=== PATIENT | female | born 1955 | race Caucasian/White ===

== ENCOUNTER 2018-08-30 09:06 | Outpatient (CLI) | payer BC ==
--- NOTE | 2018-08-30 11:03 | RAD ---
LEFT WRIST 2 VIEWS: History Wrist pain. COMPARISON: None. FINDINGS: There is evidence of a subacute chronic injury of the distal ulnar styloid with nonunion. There is c alcification in triangular fibrocartilage. No acute fracture or malalignment. IMPRESSION: 1. Nonunion ulnar styloid injury. 2. Ossification of the triangular fibrocartilage. 3. 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 POS: [facility]
== END 2018-08-30 09:07 | disposition home or self-care (01) ==
LOC: BICRAD 09:06
PROVIDERS: ATTEND Family Medicine
DX: M25.532 Pain in left wrist (principal); S69.92XA Unspecified injury of left wrist, hand and finger(s), initial encounter; M94.8X2 Other specified disorders of cartilage, upper arm

== ENCOUNTER 2018-12-27 22:55 | Inpatient (IN) | payer BC ==
[2018-12-27] MEDS ORDERED: Lidocaine Viscous Sol 2% 15 ml UD Cup ONE (23:39)
[2018-12-27] MEDS ORDERED: Aspirin Chewable 81 MG TAB ONE (23:39)
[2018-12-27] MEDS ORDERED: Mag-Al Plus 1200 MG/1200 MG/120 MG/30 ML UDCUP ONE (23:39)
[2018-12-28 00:05] LABS: #Basophils 0.1 thou/uL (0.0-0.2); #Eosinphils 0.1 thou/uL (0.0-0.7); #Lymphocytes 1.2 thou/uL (1.20-3.40); #Monocytes 0.8 thou/uL (0.11-0.59); #Neutrophils 7.2 thou/uL (1.40-6.50); %Basophils 1.1 % (0.0-1.0); %Eosinophils 1.6 % (0.0-10.0); %Lymphocytes 12.2 % (21.0-51.0); %Monocytes 8.7 % (0.0-10.0); %Neutrophils 76.5 % (42.0-75.0); Hemoglobin 14.3 g/dL (12.0-16.0); Mean Corpuscular Volume 91.1 fL (78.0-98.0); Platelet Count 203 thou/uL (130-400); RBC Distribution Width 11.3 % (11.5-14.5); Red Blood Cell (RBC) Count 4.63 mill/uL (4.20-5.40); White Blood Cell (WBC) Count 9.5 thou/uL (4.8-10.8)
--- NOTE | 2018-12-28 00:07 | RAD ---
PORTABLE CHEST: HISTORY: Chest pain. COMPARISON: 11/11/2016 FINDINGS: Heart size is within normal limits for the portable technique. The aorta is tortuous. The lungs are clear of infiltrates. Arthritic changes of both shoulders are seen with postoperative changes of th e left shoulder. IMPRESSION: No active intrathoracic disease. POS: [facility]
[2018-12-28 00:17] LABS: ALT (SGPT) 667 U/L (8-55); AST (SGOT) 643 U/L (5-34); Albumin 4.4 g/dL (3.4-4.8); Alkaline Phosphatase 320 U/L (40-150); Anion Gap 16 mmol/L (10-20); BUN (Urea Nitrogen) 11 mg/dL (9.8-20.1); Bilirubin, Total 1.8 mg/dL (0.2-1.2); CK (CPK) 67 U/L (29-168); Calc. Creatinine Clearance 0 mL/min (70-130); Calcium 9.7 mg/dL (7.8-10.44); Carbon Dioxide 26 mmol/L (23-31); Chloride 103 mmol/L (98-107); Estimated GFR-MDRD 89; Globulin 3.3 g/dL (2.4-3.5); Glucose 119 mg/dL (80-115); Potassium 3.7 mmol/L (3.5-5.1); Protein, Total 7.7 g/dL (6.0-8.3); Sodium 141 mmol/L (136-145)
[2018-12-28 00:33] LABS: Lipase 8746 U/L (8-78)
[2018-12-28] MEDS ORDERED: Ketorolac Tromethamine 30 MG/ML VIAL ONE (00:38)
[2018-12-28] MEDS ORDERED: Piperacillin/Tazobactam 3.375 GM VIAL ONE (01:46)
[2018-12-28] MEDS ORDERED: Sodium Chloride 0.9% 100 ML ONE (01:49)
[2018-12-28] MEDS ORDERED: Morphine 4 MG/ML VIAL SLOW IVP PRN (03:58)
[2018-12-28] MEDS ORDERED: Ondansetron PF 4 MG/2 ML Vial IVP PRN ×2 (03:59→11:58)
[2018-12-28] MEDS: D5 1/2 NS w/20 mEq KCL 1,000 ML IV SCH ×2 (04:22→11:32)
[2018-12-28 04:34] VITALS: BMI 27.0
[2018-12-28] MEDS: Piperacillin/Tazobactam 3.375 GM in Sodium Chloride 0.9% 100 ML IVPB SCH ×2 (05:36→11:30)
--- NOTE | 2018-12-28 08:35 | ULT ---
PRELIMINARY REPORT/[facility]/EMERGENTY AFTER-HOURS PROCEDURE US Abdomen Limited, Right Upper Quadrant EXAM DATE/TIME: 12/28/2018 1:22 AM CLINICAL HISTORY: 63 years old, female; Pain and signs and symptoms and abnormal findings; Abnormal lab test; Elevated lipase; Nausea and vomiting and other: Diarrhea; Abdominal pain; Epigastric TECHNIQUE: Real-time ultrasound of the abdomen with image documentation. Examination was focused on the right up per quadrant. COMPARISON: No relevant prior studies available. FINDINGS: Liver: Normal. No masses. Gallbladder: Multiple echogenic, shadowing foci within the gallbladder, compatible with calcified gal lstones. Gallbladder wall measures 3 mm in thickness. Sonographic Blanco's and was reportedly negativ e. Common bile duct: Common bile duct measures 7 mm in diameter. No visible obstruction. No intrahepatic biliary dilation. Pancreas: Visualized pancreas is unremarkable. Right kidney: Right kidney is normal in appearance and measures 11.5 cm in length. IMPRESSION: 1. Cholelithiasis, without sonographic evidence of acute cholecystitis. 2. Mild dilation of the extrahepatic common bile duct of uncertain acuity. Findings may be secondary to current or prior obstruction. Recommend comparison to previous studies if available. If unavailabl e, consider further evaluation with ERCP/MRCP. Thank you for allowing us to participate in the care of your patient. Dictated and Authenticated by: Pasha Ponce MD 12/28/2018 3:38 AM Central Time ([place] & [place]) FINAL REPORT GALLBLADDER ULTRASOUND: Date: 12/28/18 HISTORY: Epigastric pain. Nausea, vomiting, and diarrhea. Elevated lipase. COMPARISON: None. TECHNIQUE: Utilizing a multihertz transducer, sonographic imaging of the right upper quadrant is performed in th e longitudinal and transverse plane. FINDINGS: This report is in agreement with the preliminary report by [facility]. There is sonographic evidence of cho lelithiasis without definite sonographic evidence of cholecystitis. The visualized pancreatic parench yma has a normal echotexture. Common bile duct is dilated. Consider further evaluation with ERCP and/ or MRCP. POS: [facility]
[2018-12-28 09:53] LABS: INR-International Normal Ratio 1.1; PTT 28.8 SEC (22.9-36.1); Prothrombin Time 13.8 SEC (12.0-14.7)
[2018-12-28 10:07] LABS: ALT (SGPT) 712 U/L (8-55); AST (SGOT) 521 U/L (5-34); Albumin 3.9 g/dL (3.4-4.8); Alkaline Phosphatase 332 U/L (40-150); Bilirubin, Direct 1.7 mg/dL (0.1-0.3); Bilirubin, Total 2.6 mg/dL (0.2-1.2); Protein, Total 6.7 g/dL (6.0-8.3)
[2018-12-28 10:25] LABS: Lipase 2179 U/L (8-78)
[2018-12-28] MEDS ORDERED: Lidocaine 1% PF 5 ML VIAL ONE (10:59)
[2018-12-28] MEDS ORDERED: Succinylcholine Chloride 20 MG/ML 10 ml SYRINGE FS ONE (10:59)
[2018-12-28] MEDS ORDERED: Dexamethasone 20 MG/5 ML VIAL ONE (10:59)
[2018-12-28] MEDS ORDERED: PROPOFOL 200 MG/20 ML VIAL ONE (10:59)
[2018-12-28] MEDS ORDERED: Ondansetron PF 4 MG/2 ML Vial ONE (10:59)
[2018-12-28] MEDS ORDERED: Rocuronium Bromide 10 MG/ML (10ML VIAL) ONE (10:59)
[2018-12-28] MEDS ORDERED: Metoprolol Tartrate 5 MG/5 ML VIAL ONE (11:00)
[2018-12-28] MEDS ORDERED: Glycopyrrolate 0.2 MG/ML 5 ML SYRINGE ONE (11:00)
[2018-12-28] MEDS: Ketorolac Tromethamine 30 MG/ML VIAL IVP PRN ×2 (11:31→17:33)
[2018-12-28] MEDS ORDERED: Bisacodyl 5 MG TAB PO PRN (11:58)
[2018-12-28] MEDS ORDERED: Dextrose 5 % And 0.9 % NaCl 1,000 ML IV SCH (12:00)
[2018-12-28] MEDS ORDERED: Indomethacin 50 MG SUPP PR SCH (12:30)
--- NOTE | 2018-12-28 12:38 | HP ---
PRIMARY CARE PROVIDER: Dr. Apolinar Washington MD CHIEF COMPLAINT: Abdominal pain. HISTORY OF PRESENT ILLNESS: Ms. Abraham is a pleasant 63-year-old lady, who was seen at [facility] on December 28, 2018, following transfer from [facility]. She reports that she had some chest pain 2 weeks ago. Yesterday, she started having abdominal pain. She describes it as sharp, in the epigastrium, 10/10 at its worst, accompanied by nausea and vomiting. She had one episode of diarrhea yesterday. She denies any fevers. The abdominal pain is nonradiating. She cannot recall any aggravating or relieving factors. REVIEW OF SYSTEMS: All other systems reviewed and found to be negative. PAST MEDICAL HISTORY: Gastroesophageal reflux disease. PAST SURGICAL HISTORY: Left knee replacement, bilateral knee surgery, lumpectomy, and uterine fibroid removal. SOCIAL HISTORY: The patient drinks 3 glass of wine every night. She denies tobacco use or recreational drug use. FAMILY HISTORY: Myocardial infarction in her father at age 42. ALLERGIES: LATEX. CURRENT MEDICATIONS: 1. Lansoprazole 30 mg daily. 2. Multivitamins one tablet daily. 3. Calcium citrate 600 mg daily. 4. Osteo Bi-Flex 1 tablet daily. 5. Omak p.r.n. PHYSICAL EXAMINATION: GENERAL: On examination, Ms. Abraham is awake and alert, not in acute distress. VITAL SIGNS: Blood pressure is 126/77, pulse 65, respiratory rate 16, and oxygen saturation 96% on room air. She is afebrile. HEENT: Eyes, she has scleral icterus. No conjunctival pallor. ENT, dry mucosal membranes. No oropharyngeal erythema or exudates. NECK: Supple, nontender, trachea is midline. RESPIRATORY: Accessory muscles of breathing are not active. Chest wall movements are symmetric bilaterally. Lungs are clear to auscultation without wheeze, rhonchi, or crepitations. CARDIOVASCULAR: S1 and S2 are heard, regular. Peripheral pulses palpable. ABDOMEN: Soft. Mild epigastric and right upper quadrant tenderness present. No guarding or rigidity. Bowel sounds are heard. Blanco sign is negative. NEUROLOGIC: Cranial nerves 2 through 12 are intact. SKIN: No rashes or subcutaneous nodules. LYMPHATIC: No cervical lymphadenopathy. PSYCHIATRIC: Normal mood, normal affect. The patient is oriented to person, place, and time. DIAGNOSTIC STUDIES: Ms. Abraham's labs and investigations were reviewed. She had an electrocardiogram, which showed normal sinus rhythm. No ST changes to suggest an acute coronary syndrome. Chest x-ray did not show any acute intrathoracic abnormality. Abdominal ultrasound showed cholelithiasis and mild dilatation of the extrahepatic common bile duct of uncertain acuity. ASSESSMENT AND PLAN: Ms. Abraham is a pleasant 63-year-old lady, who was seen at [facility] on December 28, 2018. Her problem list includes: 1. Acute pancreatitis: Ms. Abraham is presenting with acute pancreatitis, most likely gallstone induced. She will be admitted to the hospital for further management including intravenous fluids and pain medications. We will follow lipase levels. 2. Choledocholithiasis: She has mild dilatation of the biliary tree. GI Service has been consulted for opinion and help with further management. 3. Abnormal liver function tests: Likely secondary to choledocholithiasis. We will follow serial LFTs. She has received a dose of Zosyn in the emergency room. However, there is no clear evidence of infection at this time. I am not starting her on antibiotics. Her home medications including PPI will be continued. Many thanks for allowing me to participate in your patient's care. Please feel free to contact me with any questions or concerns. LEVEL OF RISK: Moderate. LEVEL OF COMPLEXITY: Moderate. Job ID: [id number]
[2018-12-28] MEDS ORDERED: Iothalamate Meglumine 60% 50 ML VIAL FS ONE ×2 (13:09→14:26)
[2018-12-28] MEDS ORDERED: Indomethacin 50 MG SUPP ONE (13:09)
[2018-12-28] MEDS ORDERED: Scopolamine 1.5 mg/72 hour Patch ONE (13:33)
[2018-12-28] MEDS ORDERED: Bupivacaine HCl 0.5%/Epinephrine 1:200,000/PF 30 ml Vial ONE (14:26)
--- NOTE | 2018-12-28 14:26 | CON ---
DATE OF CONSULTATION: 12/28/2018 HISTORY OF PRESENT ILLNESS: This is a 63-year-old woman, who was admitted with abdominal pain. The patient reports 10/10 epigastric abdominal pain yesterday shortly after lunch consisting of some pasta with cream sauce. The pain was bandlike without any radiation to the back. The pain was associated with multiple episodes of nausea, but no emesis. The patient reports similar pain pattern in February of last year, which was evaluated in the emergency department and thought to be secondary to gastroesophageal reflux disease, for which, the patient was placed on PPI. She has remained symptom free up until last month when she had recurrent abdominal pain, which was able to resolve within 24 hours. Since the last episode in November, she had multiple postprandial epigastric abdominal pain, which were self-limiting, usually associated with abdominal bloating. The biggest change though is that since yesterday with this pain, the patient has had some diarrhea and some emesis. She denies any fevers or chills. PAST MEDICAL HISTORY: Pertinent for gastroesophageal reflux disease. PAST SURGICAL HISTORY: Pertinent for left knee arthroplasty, breast lumpectomy, and uterine fibroid removal. SOCIAL HISTORY: She admits to occasional intake of ethanol in moderate amounts, but denies any cigarette smoking or illicit drug abuse. FAMILY HISTORY: Significant for coronary artery disease in her father, who at the age 42 from complications of above. She denies any family history of inflammatory bowel disease, essential hypertension, or diabetes mellitus. PREHOSPITAL MEDICATIONS: 1. Lansoprazole 30 mg p.o. daily. 2. Multiple vitamins. 3. Calcium citrate 600 mg p.o. daily. 4. Hydrocodone 5 mg/325 one p.o. daily. REVIEW OF SYSTEMS: Ten-point review of systems essentially unremarkable except as stated in past medical history and chief complaint. PHYSICAL EXAMINATION: GENERAL: This is a 63-year-old, G6, P2, normally developed woman, who is otherwise coherent, interactive, and appears stated age. The patient is alert and oriented x3, appears to be in no acute distress at time of my evaluation. VITAL SIGNS: Currently includes blood pressure 126/77, pulse is 65, respiratory rate is 16, and temperature is 98.1 degrees Fahrenheit, and oxygen saturation 96% on room air. HEENT: Reveals normocephalic and atraumatic. Pupils are equal, round, reactive to light and accommodation. She has no scleral icterus present. Oral mucosa is pink and moist. No lesions are noted. NECK: Supple. No palpable lymphadenopathy or thyromegaly present. HEART: Reveals regular rate and rhythm. No murmurs or gallops auscultated. LUNGS: Clear to auscultation bilaterally. Her breathing, regular and nonlabored. ABDOMEN: Soft with right upper quadrant tenderness to palpation. Liver and spleen nonpalpable below costal margin. EXTREMITIES: Reveal 2+ radial and pedal pulses bilaterally. No ankle edema is present. NEUROLOGIC: Reveals no focal deficits present. LABORATORY FINDINGS: Includes a CBC from yesterday shows 9500 white blood cells, hemoglobin and hematocrit 14.3 and 42.2 respectively, platelet count is 203,000. Metabolic profile from yesterday as well, sodium 141, potassium 3.7, chloride 103, bicarb 26, BUN 11, creatinine 0.67, glucose 119, total bilirubin 1.8, AST and ALT elevated at 643 and 667 respectively. Alkaline phosphatase is also elevated at 320. Serum lipase is elevated at 8746. LFTs today; total bilirubin 2.6, AST and ALT remained elevated at 521 and 712 respectively. Alkaline phosphatase is elevated, but stable at 332. Serum lipase is resolving at 2179. I have personally reviewed the abdominal ultrasound, which shows multiple intraluminal gallstones. Gallbladder wall is slightly thickened at 3 mm. The common bile duct is upper limits of normal for this patient's age at 7 mm in diameter. IMPRESSIONS: 1. Acute cholecystitis with cholelithiasis. 2. Probable choledocholithiasis. RECOMMENDATIONS: 1. GI evaluation in consideration for ERCP. 2. Post-ERCP, laparoscopic cholecystectomy. 3. I advised the patient of the above findings and recommendation. 4. I have also informed the patient of the risks and benefits of proposed laparoscopic cholecystectomy to include, but not limited to bleeding, infection, injury to bile duct or surrounding structures. The patient indicates understanding of the information I provided her today. I have answered all her questions. The patient is going to consent for the surgical intervention. Thank you again, Dr. Recinos, for allowing me the opportunity to participate in the care of this patient. Job ID: [id number]
[2018-12-28] MEDS ORDERED: Fentanyl 100 MCG/2 ML VIAL ONE ×3 (14:53→16:27)
--- NOTE | 2018-12-28 15:03 | CON ---
DATE OF CONSULTATION: 12/28/2018 REASON FOR CONSULTATION: Choledocholithiasis and abnormal LFTs. CONSULTING PHYSICIAN: Dr. Jack Recinos. HISTORY OF PRESENT ILLNESS: The patient is a 63-year-old female with past medical history of GERD and "spastic colon", presenting with complaints of prior midepigastric abdominal pain. She states that she had acute onset of midepigastric pain in February of 2018 for which she was seen in an urgent care center. She was diagnosed with acid reflux at that time and given instructions/recommendations to stop all NSAIDs as well as placed on lansoprazole x7 days. At which point, the patient experienced complete resolution of her pain; however, in late November of 2018, she experienced recurrence of this midepigastric pain characterized as a constant burning/pressure type pain that was nonradiating, which would reach a severity of 6/10. The pain was worse with increased stressful situations and some particular movements, better with drinking water and sitting in her recliner. This was also associated with increased nausea, vomiting, diarrhea, and a fever the last one day, but that has since not recurred. However, over the last 24 hours, she had significant worsening of this abdominal pain, which prompted her admission to the [facility] ER. While in the ER, she was noted to have a significantly elevated lipase at approximately 8746 with an ultrasound showing the presence of gallstones concerning for the presence of choledocholithiasis. Today, she states that she is feeling much better. She does continue to have some mild nausea but has not experienced any vomiting. Upon questioning, she also experienced change in her bowel movements over the last 1 or 2 weeks, now having approximately 1 to 2 soft/formed stools per day and she has also lost approximately 6 pounds over the last two weeks. Otherwise, she denies any fevers, chills, GI bleeding, dysphagia, odynophagia, or constipation. REVIEW OF SYSTEMS: A 10-category review of systems was obtained with all responses negative except for the pertinent positives as listed in HPI. PAST MEDICAL HISTORY: As per HPI. PAST SURGICAL HISTORY: Left knee replacement, bilateral knee surgery, lumpectomy, and urine fibrin removal. FAMILY HISTORY: Denies any GI malignancies. SOCIAL HISTORY: Drinks approximately three glasses of wine per night. Denies any tobacco or illicit drug use. OUTPATIENT MEDICATIONS: Reviewed. ALLERGIES: LATEX. PHYSICAL EXAMINATION: VITAL SIGNS: Temperature 98.1, pulse 65, blood pressure 126/77, respiratory rate 16, saturating 96% on room air. GENERAL: The patient is lying in bed, in no acute distress. Alert and oriented x4. HEENT: Neck, supple. No JVD or scleral icterus noted. Normocephalic and atraumatic. CARDIOVASCULAR: Regular rate and rhythm with no discernible murmurs, gallops, or rubs. RESPIRATORY: Clear to auscultation bilaterally with no discernible wheezes or rales. ABDOMEN: Hypoactive bowel sounds. Soft and nondistended. Tenderness to palpation in the midepigastric and right upper quadrant regions. EXTREMITIES: No cyanosis, clubbing, or edema. LABORATORY DATA: CBC with a white blood cell count of 9.5, hemoglobin 14.3, hematocrit 42.2, and platelets 203. Chemistry with a sodium of 141, potassium 3.7, chloride 103, CO2 of 26, BUN 11, creatinine 0.67, glucose 119, AST 643, ALT 667, alkaline phosphatase 320, total bilirubin 1.8, lipase 8746, albumin 4.4. IMAGING DATA: A right upper quadrant ultrasound was obtained on December 28, 2018, which showed multiple echogenic shadowing foci within the gallbladder compatible with calcified gallstones. The gallbladder wall measured 3 mm in thickness with a negative Blanco sign. On examination, the common bile duct measured approximately 7 mm in diameter with no intrahepatic biliary dilatation. ASSESSMENT AND PLAN: The patient is a 63-year-old female with past medical history of gastroesophageal reflux disease and probable irritable bowel syndrome, presenting with acute gallstone pancreatitis. 1. Gallstone pancreatitis. The patient is presenting with a history of recurrent midepigastric abdominal pain characterized as a burning/pressure/constricting type pain originating in the midepigastric region radiating slightly to both the left and right upper quadrant, but in no other discernible pattern. On admission in the ER, she was noted to have a significantly elevated lipase and when coupled with the right upper quadrant ultrasound showing the presence of cholelithiasis, is concerning for the presence of choledocholithiasis and resultant gallstone pancreatitis. With her LFTs currently elevated, it is also consistent with an obstructive type picture and this patient would probably benefit from endoscopic retrograde cholangiopancreatography. RECOMMENDATIONS: 1. Would keep the patient n.p.o. For now in preparation for procedure. 2. We will proceed with endoscopic retrograde cholangiopancreatography later on today for evaluation of the biliary tree and probable removal of stones within the common bile duct. 3. We would continue broad-spectrum antibiotics with Zosyn. 4. Would increase IV fluid administration to approximately 200 mL/h in light of acute pancreatitis. 5. Pain control per primary team. 6. We will start the patient on a clear liquid diet within the next 24 to 48 hours and advance as tolerated after that. 7. We will continue to follow. Please call with any questions. Job ID: [id number]
--- NOTE | 2018-12-28 15:27 | OP ---
DATE OF PROCEDURE: 12/28/2018 PROCEDURE PERFORMED: Endoscopic retrograde cholangiopancreatography with sphincterotomy and balloon extraction of foreign body/stones. INDICATION FOR PROCEDURE: Choledocholithiasis. DESCRIPTION OF PROCEDURE: After the risks and benefits of the procedure were explained to the patient including risks of bleeding, infection, perforation, reactions to anesthesia, aspiration, pancreatitis, and/or pain, informed consent was obtained. The patient was then taken to the endoscopy suite, where general anesthesia was delivered by the Anesthesia support and endotracheal tube intubation. Once the patient was intubated and sedated, she was maneuvered into the prone position in preparation for the procedure. Once in the prone position, the standard duodenoscope was introduced into the mouth with intubation of the esophagus, stomach, and the proximal small intestine with the findings listed below. Limited views were obtained of all of these regions given the side-viewing nature of the scope. The patient tolerated the procedure well with no immediate perioperative complications. Upon conclusion of the procedure, all equipment was removed from the patient, and the patient was taken to the operating room in preparation for cholecystectomy. EGD FINDINGS: Limited views were obtained of the esophagus, stomach, and proximal small intestine, but of the mucosa visualized, normal-appearing mucosa was seen in the proximal, mid, and distal esophagus within the stomach as well as within the proximal small intestine. There was no evidence of erosions, ulcerations, mass, lesions, or active/recent bleeding. ERCP findings: The ampulla was easily identified within the second portion of the duodenum and appeared normal. Upon initial inspection, using a 5 mm sphincterotome, it was successfully cannulated with infusion of contrast dye into the distal common bile duct. With injection of dye within the CBD, there was noted multiple small filling defects within the distal common bile duct consistent with choledocholithiasis. At that point, using the sphincterotome, a sphincterotomy was cut at the approximate 11 o'clock position with extrusion of one yellow pigmented stone immediately upon cutting. Upon completion of the sphincterotomy and using an exchange technique, the sphincterotome was removed and exchanged for a 9 to 12 mm biliary balloon, which was then advanced into the distal common bile duct over a guidewire. Multiple successive balloon sweeps were then performed, inflating the balloon up to 12 mm in size. On the initial sweep, approximately two additional yellow pigmented stones measuring 3 to 4 mm in size were removed from the common bile duct. Additional balloon sweeps did not yield any additional sludge or stones. An occlusion cholangiogram was then performed, outlining both the intrahepatic and extrahepatic biliary tree with no additional filling defects noted. Upon deflating the balloon, drainage of the biliary tree was also noted. The procedure was then concluded with all equipment removed from the patient, and the patient taken to the operating room as part of the next phase of her procedures. IMPRESSION: Choledocholithiasis with successful balloon extraction of three 3 to 4 mm yellow pigmented stones. RECOMMENDATIONS: 1. Would monitor the patient for signs of post-endoscopic retrograde cholangiopancreatography pancreatitis. 2. Would increase patient's IV fluid administration in the postoperative period to approximately 200 mL/h given gallstone pancreatitis. 3. Pain control per Primary Team. 4. General Surgery to perform cholecystectomy today. 5. We will maintain n.p.o. status for the next 12 to 24 hours and if doing well after the cholecystectomy, we will start the patient on a clear liquid diet and advance as tolerated. 6. Would monitor BUN and creatinine daily as BUN is an excellent marker for response to IV fluid administration. We will continue to follow. Please call with any additional questions. Job ID: [id number]
[2018-12-28] MEDS ORDERED: traMADol HCl 50 MG TAB PO PRN (15:47)
[2018-12-28] MEDS ORDERED: Promethazine HCl 25 MG/ML VIAL IM/IV PRN (16:19)
[2018-12-28] MEDS ORDERED: Ondansetron HCl/PF 4 MG/2 ML Vial IVP PRN (16:19)
--- NOTE | 2018-12-28 16:43 | OP ---
DATE OF PROCEDURE: 12/28/2018 PREOPERATIVE DIAGNOSES: 1. Acute cholecystitis, cholelithiasis. 2. Choledocholithiasis, status post endoscopic retrograde cholangiopancreatography with common bile duct stone extraction. POSTOPERATIVE DIAGNOSES: 1. Acute cholecystitis, cholelithiasis. 2. Choledocholithiasis, status post endoscopic retrograde cholangiopancreatography with common bile duct stone extraction. OPERATION PERFORMED: Laparoscopic cholecystectomy. ANESTHESIA: General endotracheal. ESTIMATED BLOOD LOSS: 25 mL. FLUIDS GIVEN: 1200 mL of crystalloids. COUNTS: Sponge and instrument counts were verified as correct x2. COMPLICATIONS: None apparent at the time of operation. INDICATIONS FOR OPERATION: A 63-year-old woman presented with recurrent epigastric abdominal pain. Clinical radiographic examination was consistent with acute cholecystitis with cholelithiasis, and choledocholithiasis, for which the patient underwent an uneventful ERCP with common bile duct stone extraction. Following the ERCP, the patient was brought to the operating room for cholecystectomy. FINDINGS: Consistent with gallbladder in the usual anatomical location partially encased by omental adhesions. DESCRIPTION OF OPERATION: Informed consent was obtained from the patient, who was brought to the operating room and placed in supine position. Following general anesthesia, the abdomen was sterilely prepped and draped in the usual fashion. The skin below the umbilicus was infiltrated with 0.5% Marcaine with epinephrine. A small curvilinear infraumbilical incision was made using 11 scalpel. The umbilical stalk was grasped with Don and elevated. Veress needle was inserted through the incision and placed in the peritoneal cavity through which the abdomen was insufflated with 2 L of CO2 gas. Intraabdominal pressure was noted at 2 mmHg. Following abdominal insufflation, Veress needle was removed and a 5-mm trocar was introduced using a Visiport under laparoscopy. Laparoscopy confirmed proper placement of the port, no injuries to underlying structures. Additional laparoscopy reveals gallbladder in the usual anatomic location partially encased by omental adhesions. Under direct laparoscopy, a 12-mm epigastric and two 5-mm right lateral subcostal ports were placed after the overlying skin were infiltrated with 0.5% Marcaine with epinephrine, appropriate incision was made. The patient was placed in a reverse Trendelenburg position and rotated to her left. I then used a [place] dissector with cautery to take down the omental adhesions. A Prestige grasper was introduced through the right lateral subcostal port grasping the fundus of the gallbladder, which was elevated cephalad. Omental adhesions having been removed from the remainder of the gallbladder. A second Prestige grasper was introduced through the right medial subcostal port grasping the Carlene pouch, which was retracted laterally. The cystic duct was dissected free from surrounding structures at the triangle of Calot. The duct was divided between clips, applying 2 clips proximally, 1 clip at the junction of the cystic duct and gallbladder. The cystic artery was dissected free from surrounding structures and divided between clips in a similar fashion. The gallbladder itself was removed from the liver bed using cautery with good hemostasis. The gallbladder was passed off the operative field using an Endo Catch. The operative site was inspected for good hemostasis. Finding, no other pathology, laparoscopy was terminated. Fascia of the epigastric port was closed using 0 Vicryl suture and Endo Close device on the laparoscopy. The abdomen was desufflated. All ports and instruments were removed and accounted for. All skin incisions were closed using 4-0 Monocryl suture in subcuticular fashion. Dermabond was applied over incisional closure. The patient tolerated the operation without any apparent complication and was returned to the recovery room in satisfactory condition. Job ID: [id number]
[2018-12-28] MEDS: traMADol HCl 50 MG TAB PO PRN (18:37)
[2018-12-28] MEDS: Acetaminophen 500 MG TAB PO SCH (18:37)
[2018-12-28] MEDS: Sodium Chloride 0.9% 1,000 ML IV SCH (21:52)
[2018-12-29] MEDS: Acetaminophen 500 MG TAB PO SCH ×4 (00:28→17:24)
[2018-12-29] MEDS: Sodium Chloride 0.9% 1,000 ML IV SCH (02:56)
[2018-12-29] MEDS: traMADol HCl 50 MG TAB PO PRN (03:00)
[2018-12-29 06:53] LABS: #Lymphocytes 1.2 thou/uL (1.20-3.40); #Monocytes 0.6 thou/uL (0.11-0.59); #Neutrophils 4.8 thou/uL (1.40-6.50); %Basophils 0.2 % (0.0-1.0); %Eosinophils 0.4 % (0.0-10.0); %Lymphocytes 18.5 % (21.0-51.0); %Monocytes 8.6 % (0.0-10.0); %Neutrophils 72.4 % (42.0-75.0); Hemoglobin 11.7 g/dL (12.0-16.0); Mean Corpuscular Hemoglobin 31.8 pg (27.0-31.0); Mean Corpuscular Volume 96.4 fL (78.0-98.0); Mean Platelet Volume 8.8 fL (7.4-10.4); Platelet Count 163 thou/uL (130-400); RBC Distribution Width 11.2 % (11.5-14.5); Red Blood Cell (RBC) Count 3.69 mill/uL (4.20-5.40); White Blood Cell (WBC) Count 6.7 thou/uL (4.8-10.8)
[2018-12-29 07:09] LABS: ALT (SGPT) 532 U/L (8-55); AST (SGOT) 255 U/L (5-34); Albumin 3.4 g/dL (3.4-4.8); Alkaline Phosphatase 310 U/L (40-150); Anion Gap 11 mmol/L (10-20); BUN (Urea Nitrogen) 10 mg/dL (9.8-20.1); Bilirubin, Total 1.8 mg/dL (0.2-1.2); Calc. Creatinine Clearance 117 mL/min (70-130); Calcium 8.7 mg/dL (7.8-10.44); Carbon Dioxide 22 mmol/L (23-31); Chloride 110 mmol/L (98-107); Estimated GFR-MDRD Greater than 90; Globulin 2.5 g/dL (2.4-3.5); Glucose 93 mg/dL (80-115); Lipase 133 U/L (8-78); Potassium 4.3 mmol/L (3.5-5.1); Protein, Total 5.9 g/dL (6.0-8.3); Sodium 139 mmol/L (136-145)
[2018-12-29] MEDS ORDERED: Senokot 8.6 MG TAB PO SCH (09:00)
[2018-12-29] MEDS ORDERED: Enoxaparin Sodium 40 MG/0.4 ML SYRINGE SC SCH (09:00)
[2018-12-29 11:22] VITALS: BP 115/69; TEMP 97.5
--- NOTE | 2018-12-29 22:11 | DIS ---
DATE OF ADMISSION: 12/28/2018 DATE OF DISCHARGE: 12/29/2018 PRIMARY CARE PROVIDER: Apolinar Washington MD DISCHARGE DIAGNOSES: 1. Acute cholecystitis. 2. Cholelithiasis. 3. Choledocholithiasis. 4. Acute pancreatitis. CONSULTATIONS DURING THIS HOSPITALIZATION: 1. Gastroenterology, Marcelo Jimenez MD. 2. General Surgery, Dr. Seo. CONDITION OF PATIENT ON THE DAY OF DISCHARGE: Stable. I assessed Ms. Abraham on the day of discharge. She denies any chest pain or shortness of breath. Vital signs are stable. S1 and S2 are heard, regular. Lungs are clear to auscultation bilaterally. HOSPITAL COURSE: Ms. Abraham is a pleasant 63-year-old lady, who was admitted to [facility] on December 28, 2018, for abdominal pain. Please refer to my history and physical note dated December 28, 2018, for further details. She was seen by [facility]. She was diagnosed with cholecystitis, choledocholithiasis, and cholelithiasis. She underwent ERCP with successful balloon extraction of three 3-4 mm yellow pigmented stones. She also underwent laparoscopic cholecystectomy. She continued to do well following the procedures. Her liver function test started improving. On the day of discharge, she has sodium 139, potassium 4.3, creatinine 0.58, total bilirubin 1.8, AST 255, ALT 532, and alkaline phosphatase 310. Lipase improved to 133. She has white count of 6700, hemoglobin 11.7, and platelet count 163,000. She has been cleared for discharge and is being discharged home in a stable condition. Many thanks for allowing me to participate in your patient's care. Please feel free to contact me with any questions or concerns. DISCHARGE DESTINATION: Home. TIME SPENT: Total amount of time spent coordinating this discharge: 32 minutes. Job ID: [id number]
== END 2018-12-29 18:15 | disposition home or self-care (01) | DRG 417 ==
LOC: SCSER 22:55 → ERHOLD 12-28 02:47 → T4-B 12-28 02:53
PROVIDERS: ADMIT Family Medicine; ATTEND Family Medicine
PROC: 0FT44ZZ Resection of Gallbladder, Percutaneous Endoscopic Approach (ICD-10-PCS; principal; 2018-12-28)
PROC: 0FC98ZZ Extirpation of Matter from Common Bile Duct, Via Natural or Artificial Opening Endoscopic (ICD-10-PCS; 2018-12-28)
DX: K80.62 Calculus of gallbladder and bile duct with acute cholecystitis without obstruction (principal); K85.10 Biliary acute pancreatitis without necrosis or infection; K21.9 Gastro-esophageal reflux disease without esophagitis; Z96.651 Presence of right artificial knee joint; Z98.890 Other specified postprocedural states; Z79.899 Other long term (current) drug therapy; Z91.040 Latex allergy status
CPT/HCPCS: 36415; 71045; 74330; 76705; 80053; 80076; 82248; 82550; 83690; 84484; 85025; 85610; 85730; 86850; 86900; 86901; 88304; 93005; 96365; 96375; J0670; J1650; J1885; J2405; J2543; J3010; J3490; J7050; Q9961

== ENCOUNTER 2019-01-20 08:25 | Outpatient (CLI) | payer BC ==
--- NOTE | 2019-01-20 09:12 | MMO ---
Bilateral MAMMO Bilat Screen DDI+FER. CLINICAL HISTORY: Patient is 63 years old and is seen for screening. The patient has no family history of breast cancer. The patient has no personal history of cancer. The patient has a history of left Excisional Biopsy in 1994 - BENIGN. VIEWS: The views performed were: bilateral craniocaudal with tomosynthesis and bilateral mediolateral oblique with tomosynthesis. FILMS COMPARED: The present examination has been compared to prior imaging studies performed at [facility] on 07/11/2003, 07/27/2003, 01/25/2004, 12/12/2004, 01/30/2006, 03/05/2007, 04/13/2008, 04/13/2009, 05/21/2010, 05/21/2011, 06/04/2012, 10/25/2015 and 10/27/2016, and at [facility] on 11/02/1998 and 01/17/2002. MAMMOGRAM FINDINGS: There are scattered fibroglandular densities. There are benign appearing calcifications seen in both breasts. There are no suspicious masses, calcifications or areas of architectural distortion. IMPRESSION: CALCIFICATIONS IN BOTH BREASTS ARE BENIGN. A ROUTINE FOLLOW-UP MAMMOGRAM IN 1 YEAR IS RECOMMENDED. THE RESULTS OF THIS EXAM WERE SENT TO THE PATIENT. ACR BI-RADS Category 2 - Benign finding MAMMOGRAPHY NOTE: 1. A negative mammogram report should not delay a biopsy if a dominant of clinically suspicious mass is present. 2. Approximately 10% to 15% of breast cancers are not detected by mammography. 3. Adenosis and dense breasts may obscure an underlying neoplasm.
== END 2019-01-20 08:26 | disposition home or self-care (01) ==
LOC: BICMAMMO 08:25
PROVIDERS: ATTEND Family Medicine
DX: Z12.31 Encounter for screening mammogram for malignant neoplasm of breast (principal); R92.1 Mammographic calcification found on diagnostic imaging of breast
CPT/HCPCS: 77063; 77067

== ENCOUNTER 2019-11-27 13:51 | Inpatient (IN) | payer BC ==
[~2019-11-27 13:51] MED LIST: Glycopyrrolate 0.2 MG/ML 5 ML SYRINGE ONE; Iopamidol-370 76% 500 ML 1 ML ONE; Labetalol HCl 100 MG/20 ML VIAL ONE; Lidocaine 1% PF 5 ML VIAL ONE; Ondansetron PF 4 MG/2 ML Vial ONE; PROPOFOL 200 MG/20 ML VIAL ONE; Rocuronium Bromide 10 MG/ML (10ML VIAL) ONE; Succinylcholine Chloride 20 MG/ML 10 ml SYRINGE FS ONE
[2019-11-27 14:26] LABS: #Basophils 0.1 thou/uL (0.0-0.2); #Eosinphils 0.2 thou/uL (0.0-0.7); #Lymphocytes 2.3 thou/uL (1.20-3.40); #Monocytes 0.7 thou/uL (0.11-0.59); #Neutrophils 4.8 thou/uL (1.40-6.50); %Basophils 0.8 % (0.0-1.0); %Eosinophils 2.7 % (0.0-10.0); %Lymphocytes 28.8 % (21.0-51.0); %Monocytes 8.6 % (0.0-10.0); Hemoglobin 14.1 g/dL (12.0-16.0); Mean Corpuscular HGB CONC 33.4 g/dL (32.0-36.0); Mean Corpuscular Volume 95.9 fL (78.0-98.0); Mean Platelet Volume 8.6 fL (7.4-10.4); Platelet Count 251 thou/uL (130-400); RBC Distribution Width 10.7 % (11.5-14.5); Red Blood Cell (RBC) Count 4.41 mill/uL (4.20-5.40); White Blood Cell (WBC) Count 8.1 thou/uL (4.8-10.8)
[2019-11-27 14:48] LABS: ALT (SGPT) 31 U/L (8-55); AST (SGOT) 19 U/L (5-34); Albumin 4.1 g/dL (3.4-4.8); Alkaline Phosphatase 169 U/L (40-110); Anion Gap 15 mmol/L (10-20); BUN (Urea Nitrogen) 11 mg/dL (9.8-20.1); Bilirubin, Total 0.3 mg/dL (0.2-1.2); Calc. Creatinine Clearance 0 mL/min (70-130); Calcium 9.4 mg/dL (7.8-10.44); Carbon Dioxide 24 mmol/L (23-31); Chloride 104 mmol/L (98-107); Estimated GFR-MDRD 87; Globulin 3.8 g/dL (2.4-3.5); Glucose 89 mg/dL (80-115); Lipase 12 U/L (8-78); Protein, Total 7.9 g/dL (6.0-8.3); Sodium 139 mmol/L (136-145)
[2019-11-27 15:21] LABS: Bacteria/HPF None Seen HPF (None Seen); Bilirubin Negative (Negative); Blood, Urine Negative (Negative); Clarity Clear (Clear); Glucose, Urine (Dipstick) Normal (Negative); Leukocyte 75 Leu/uL (Negative); Mucous/LPF 2+ LPF (<2+); Nitrite Negative (Negative); Protein, Urine (Dipstick) 10 mg/dL (Neg-Trace); RBC/HPF 0-3 HPF (0-3); Squamous Epithelial 0-3 HPF (0-3); Urobilinogen Normal mg/dL (Less than 2); WBC/HPF 0-3 HPF (0-3)
--- NOTE | 2019-11-27 15:29 | CT ---
CT Abdomen Pelvis W Con History: Abdominal pain Comparison: None. Findings: Lung bases are clear. No pericardial effusion. Prior cholecystectomy. Spleen and pancreas a re unremarkable. No hydronephrosis. Abnormal inflammation also a mildly distended appendix. No free intraperitoneal gas or fluid. Reactive ileocolic lymph nodes. No hydronephrosis. The aortoiliac contour is nonaneurysmal. There is superior migration of the ovarie s. Impression: Findings of acute appendicitis with secondary inflammation of the right ovary for which a buts.
[2019-11-27] MEDS ORDERED: Ketorolac Tromethamine 30 MG/ML VIAL ONE (15:56)
[2019-11-27] MEDS ORDERED: Piperacillin/Tazobactam 3.375 GM VIAL ONE (15:56)
[2019-11-27] MEDS ORDERED: Acetaminophen 500 MG TAB ONE (15:56)
[2019-11-27] MEDS ORDERED: Sodium Chloride 0.9% 10 ML ONE (16:56)
[2019-11-27] MEDS ORDERED: Fentanyl 100 MCG/2 ML VIAL ONE ×2 (17:22→19:35)
[2019-11-27] MEDS ORDERED: Lidocaine 1% w/Epinephrine 1:100K 20 ML VIAL ONE (17:40)
[2019-11-27] MEDS ORDERED: Bupivacaine PF 0.5% 30 ML VIAL ONE (17:40)
--- NOTE | 2019-11-27 17:45 | HP ---
HISTORY OF PRESENT ILLNESS: Jaki Abraham is a 64-year-old female, who presented Thursday (today is Thursday), saw Dr. Washington for right lower quadrant pain. She states she had what she described as cedar allergies. She was examined, determined to have UTI, given antibiotics, Cipro and Flagyl. She states she had fever the next day, continued to have pain. She felt worse Thursday. Called the pharmacist as the doctor's office was closed. She now presents to the emergency room with a normal white count. CAT scan of the abdomen and pelvis demonstrated appendicitis with continued exquisite right lower quadrant tenderness. ALLERGIES: LATEX. TOBACCO: None. ALCOHOL: Socially. MEDICATIONS: Currently tramadol, Cipro and Flagyl. PAST SURGICAL HISTORY: Bilateral knee replacement, laparoscopic cholecystectomy, bilateral shoulder surgery, benign breast biopsy, past C-sections. She is up to date on colonoscopies. REVIEW OF SYSTEMS: Ten-point noncontributory. PHYSICAL EXAMINATION: VITAL SIGNS: Heart rate 71, respiratory rate 21, temperature 98.1 degrees, blood pressure 175/93, weight 78 kg. HEAD, EARS, EYES, NOSE AND THROAT: Unremarkable. LUNGS: Clear to auscultation. CARDIAC: Regular rate and rhythm without murmur or gallop. ABDOMEN: Soft, tenderness in right lower quadrant. No guarding or rebound. EXTREMITIES: Unremarkable. Urinalysis unremarkable. White count 8 and hemoglobin 14. 139 sodium, 4.0 potassium, glucose 89, bilirubin 0.3. ASSESSMENT AND PLAN: Acute appendicitis. This has been ongoing for several days, probably antibiotics she has been taking after the course and prevent complications. Hopefully, we will know at the time of laparoscopy. Risks of infection, bleeding, visceral injury, bleeding, open operation, drain placement, other procedures discussed. Hopefully, this can be an outpatient, pending operative findings, but ongoing symptoms for 5 days may demand hospitalization if any of these antibiotics for period of time. We will await operative findings. Questions answered. Job ID: [id number]
[2019-11-27] MEDS ORDERED: hydrALAZINE 20 MG/ML VIAL SLOW IVP PRN (18:50)
[2019-11-27] MEDS ORDERED: Morphine 4 MG/ML VIAL SLOW IVP PRN (18:50)
[2019-11-27] MEDS ORDERED: Ondansetron PF 4 MG/2 ML Vial IVP PRN (18:50)
[2019-11-27] MEDS ORDERED: Ondansetron ODT 4 MG TAB PO PRN (18:50)
[2019-11-27] MEDS ORDERED: Morphine 2 MG/ML SYRINGE SLOW IVP PRN (18:50)
[2019-11-27] MEDS ORDERED: Ibuprofen 600 MG TAB PO PRN (18:55)
[2019-11-27] MEDS ORDERED: traMADol HCl 50 MG TAB PO PRN (18:55)
[2019-11-27] MEDS ORDERED: Ondansetron ODT 8 MG TAB SL PRN (18:57)
[2019-11-27] MEDS ORDERED: Ondansetron ODT 8 MG TAB PO PRN (18:57)
[2019-11-27] MEDS ORDERED: Ondansetron HCl/PF 4 MG/2 ML Vial IVP PRN (19:02)
[2019-11-27] MEDS ORDERED: Promethazine HCl 25 MG/ML VIAL IM PRN (19:02)
[2019-11-27] MEDS ORDERED: Promethazine HCl 25 MG/ML VIAL SLOW IVP PRN (19:02)
[2019-11-27] MEDS ORDERED: Promethazine HCl 25 MG/ML VIAL ONE (19:08)
[2019-11-27] MEDS ORDERED: Ondansetron PF 4 MG/2 ML Vial ONE (19:25)
[2019-11-27] MEDS ORDERED: Promethazine 25 MG TAB PO PRN (20:27)
[2019-11-27] MEDS ORDERED: Promethazine HCl 25 MG SUPP PR PRN (20:28)
[2019-11-27] MEDS: Ketorolac Tromethamine 30 MG/ML VIAL IVP PRN (20:46)
[2019-11-27] MEDS: Lactated Ringer's 1,000 ML IV SCH (20:46)
[2019-11-27] MEDS: Piperacillin/Tazobactam 4.5 GM in Sodium Chloride 0.9% 100 ML IVPB SCH (20:58)
[2019-11-27] MEDS ORDERED: Scopolamine 1.5 mg/72 hour Patch TOP SCH (21:00)
[2019-11-27 23:06] VITALS: BMI 29.9
[2019-11-28] MEDS: Acetaminophen 500 MG TAB PO PRN ×4 (00:04→21:04)
[2019-11-28] MEDS: traMADol HCl 50 MG TAB PO PRN ×4 (00:05→18:11)
--- NOTE | 2019-11-28 02:20 | OP ---
DATE OF PROCEDURE: 11/27/2019 PREOPERATIVE DIAGNOSIS: Neglected appendicitis. POSTOPERATIVE DIAGNOSES: Neglected appendicitis, ruptured appendicitis, walled off. PROCEDURE PERFORMED: Laparoscopic video appendectomy with partial cecectomy, 19 gold CITLALLI drain. ANESTHESIA: General, local 0.5% Marcaine, 30 mL with 1% Xylocaine with epinephrine 30 mL mixture used. FINDINGS: The patient had been on antibiotics for diagnosis of UTI and diverticulitis with a CAT scan showing early appendicitis despite 3-1/2 day history of symptoms. Findings were that of a markedly inflamed appendix, walled off by the terminal ileum, mesentery, and cecum requiring appendectomy and partial cecectomy. Small amount of purulent material aspirated, very small. ANESTHESIA: General anesthesia. DESCRIPTION OF PROCEDURE: The patient was taken to the operating room, where under general anesthesia, Das catheter was placed at the beginning of the procedure and removed at the end. Abdomen was clipped, prepared with ChloraPrep and draped in routine fashion. Local anesthetic was infiltrated in the skin and subcutaneous tissue about the operative site. An infraumbilical incision made. Pneumoperitoneum to 15 mmHg was obtained with a Veress needle, replaced with a 5 port and laparoscope inserted. Right lateral subcostal incision was made and the 5 port placed. Suprapubic incision was made and a 12 port was placed. Appendix was acutely inflamed and adherent to the terminal ileum and cecum. It was mostly adherent to the mesentery and the right pelvic sidewall and the right tube and ovary. This was taken down with blunt dissection. The LigaSure used for hemostasis at times. The terminal ileum was identified and kept free of harm. The appendix was dissected free carefully, was heavily inflamed. toward the cecum where a fire of the HEMA blue load stapler was made and there was too much inflammation, there was worry about a fistula, thus a partial cecectomy undertaken. More dissection carried out freeing the cecum, staying clear of the terminal ileum, making more fires of the HEMA blue load stapler for partial cecectomy across normal cecum, resecting the inflamed portion of the cecum. Good hemostasis noted. All specimens placed in endobag and removed. Good hemostasis obtained with the cautery. A 19 gold CITLALLI drain brought out through the lateral port site, secured with 3-0 nylon suture and placed in the right gutter and pelvis. Area irrigated. Good hemostasis assured. Irrigant and pneumoperitoneum were evacuated. Suprapubic fascia was approximated with 0 Vicryl suture. All skin incisions were approximated 4-0 Monocryl. The patient tolerated the procedure well. Job ID: [id number]
[2019-11-28] MEDS: Ketorolac Tromethamine 30 MG/ML VIAL IVP PRN ×2 (03:28→14:04)
[2019-11-28] MEDS: Piperacillin/Tazobactam 4.5 GM in Sodium Chloride 0.9% 100 ML IVPB SCH ×4 (03:30→21:04)
[2019-11-28] MEDS: Lactated Ringer's 1,000 ML IV SCH ×2 (03:30→12:00)
[2019-11-28 05:02] LABS: #Lymphocytes 0.7 thou/uL (1.20-3.40); #Monocytes 0.5 thou/uL (0.11-0.59); #Neutrophils 9.3 thou/uL (1.40-6.50); %Basophils 0.2 % (0.0-1.0); %Eosinophils 0.1 % (0.0-10.0); %Lymphocytes 6.7 % (21.0-51.0); %Monocytes 4.9 % (0.0-10.0); %Neutrophils 88.2 % (42.0-75.0); Hemoglobin 11.6 g/dL (12.0-16.0); Mean Corpuscular Hemoglobin 31.9 pg (27.0-31.0); Mean Corpuscular Volume 96.5 fL (78.0-98.0); Mean Platelet Volume 8.7 fL (7.4-10.4); Platelet Count 253 thou/uL (130-400); RBC Distribution Width 10.6 % (11.5-14.5); Red Blood Cell (RBC) Count 3.63 mill/uL (4.20-5.40); White Blood Cell (WBC) Count 10.5 thou/uL (4.8-10.8)
[2019-11-28 05:14] LABS: Anion Gap 14 mmol/L (10-20); BUN (Urea Nitrogen) 7 mg/dL (9.8-20.1); Calc. Creatinine Clearance 122 mL/min (70-130); Calcium 8.2 mg/dL (7.8-10.44); Carbon Dioxide 22 mmol/L (23-31); Chloride 106 mmol/L (98-107); Estimated GFR-MDRD Greater than 90; Glucose 137 mg/dL (80-115); Potassium 4.5 mmol/L (3.5-5.1); Sodium 137 mmol/L (136-145)
[2019-11-28] MEDS: Enoxaparin Sodium 40 MG/0.4 ML SYRINGE SC SCH (09:30)
--- NOTE | 2019-11-28 13:45 | PDOC.GSPN ---
Surgery Progress Note: Subj - Subjective Patient reports: tolerating liquids well, nausea, no bowel movement, no flatus, still having pain Narrative: Pt is a 64 year old female previously treated for diverticulitis with antibiotics 6 days ago who is now post-op day 2 for appendectomy. Today, pt reports that her abdomen feels "bloated and hard as a rock". While lying down, her pain is an 6/10 ache and it is 8/10 sharp pain when she is walking the halls. The pain is diffuse across her abdomen especially in her lower abdominal quadrants. Pt is concerned that she has not passed a BM yet since she normally has 1 BM per day since her cholecystectomy in December 2018. She experienced nausea yesterday, and has not passed gas or had a BM since an episode of diarrhea 1 day ago prior to surgery. Bowel movements have been inconsistent for the past week prior to surgery. She does not "feel hungry", but has made herself eat snacks and lunch - today a soup a sandwich without difficulty. Pt "feels hot", but denies fever, dyspnea, chest pain, headache, chills or vomiting. Pt last urinated at 3:00pm about 16oz per patient. She has been drinking several cups of water and tea throughout the day. Denies dysuria or hematuria. In regards to incision wounds, patient has not noted any blooding or pus from the wounds. Surgery Progress Note: Obj - Vital signs Vital signs: Vital Signs - Most Recent Temp Pulse Resp BP Pulse Ox 98.4 F 91 16 103/66 92 L 11/28/19 11:11/28/19 11:11/28/19 11:11/28/19 11:11/28/19 11:00 - Physical Exam General: well developed, well nourished, moderate pain ENT: no congestion, normal mucosa, normal nares, normal pinna Neck: no lymphadectomy, no paula distention, trachea midline Cardiovascular: regular rate and rhythm Respiratory: clear to auscultation, normal expansion, normal respiratory effort , breath sounds present Abdomen: positive bowel sounds, distended, tender Hernia: none Integumentary: no abnormal pigmentation, no growths, no rash Musculoskeletal: normal posture Psychiatric: memory intact, oriented to time, oriented to person, oriented to place, speech is normal Wound: dressing clean,dry,intact, healing well Additional exam: Abdomen: Abdomen is distended. 2 incisions are clean and dry without exudate or bleeding. Minimal drainage from drain tube at RUQ. Normoactive bowel sounds. Pt verbally reports tenderness with palpation especially RLQ, but no involuntary guarding. No hepatosplenomegaly. Surgery Progress Note: Results - Labs Result Diagrams: 11/28/19 04:45 11/28/19 04:45 Lab results: Laboratory Results - last 24 hr 11/28/19 11/28/19 04:45 04:45 WBC 10.5 RBC 3.63 L Hgb 11.6 L Hct 35.0 L MCV 96.5 MCH 31.9 H MCHC 33.0 RDW 10.6 L Plt Count 253 MPV 8.7 Neutrophils % 88.2 H Lymphocytes % 6.7 L Monocytes % 4.9 Eosinophils % 0.1 Basophils % 0.2 Neutrophils # 9.3 H Lymphocytes # 0.7 L Monocytes # 0.5 Eosinophils # 0.0 Basophils # 0.0 Sodium 137 Potassium 4.5 Chloride 106 Carbon Dioxide 22 L Anion Gap 14 BUN 7 L Creatinine 0.61 Estimated GFR (MDRD) Greater than 90 Glucose 137 H Calcium 8.2 Surgery Progress Note: A/P - Problem (1) Appendicitis Current Visit: Yes Code(s): K37 - UNSPECIFIED APPENDICITIS Status: Acute - Plan Plan: Continue oral diet and fluids as tolerated. Continue to monitor vitals and encourage walking. Re-evaluate at next vital check. Addendum - Physician - Physician Attestation Date/Time: 11/29/19 3844 I personally performed or re-performed the physical examination and medical decision making. I have verified all student documentation or findings, including history, physical exam and/or medical decision making.
[2019-11-28] MEDS ORDERED: Lactated Ringer's 1,000 ML IV SCH (17:01)
[2019-11-29] MEDS: Piperacillin/Tazobactam 4.5 GM in Sodium Chloride 0.9% 100 ML IVPB SCH ×2 (04:13→09:32)
[2019-11-29] MEDS: Enoxaparin Sodium 40 MG/0.4 ML SYRINGE SC SCH (09:24)
[2019-11-29] MEDS: traMADol HCl 50 MG TAB PO PRN (09:28)
[2019-11-29 12:03] VITALS: BP 116/75; TEMP 99.2
--- NOTE | 2019-11-30 04:40 | DIS ---
DATE OF ADMISSION: 11/27/2019 DATE OF DISCHARGE: 11/29/2019 ADMITTING DIAGNOSIS: Appendicitis, perforated. DISCHARGE DIAGNOSIS: Appendicitis, perforated. PROCEDURES: Laparoscopic appendectomy and drain by Dr. Warren without complication. CONDITION ON DISCHARGE: Improved. HOSPITAL COURSE: Postop day #1, the patient was feeling bloated, however, she was tolerating her diet. She was ambulatory. Postop day #2, the patient is doing well. She has had a bowel movement. She is passing gas, afebrile. Wounds look good. Her drain is removed. She is going to go home and resume her Levaquin and Flagyl for 5 more days as previously prescribed by Dr. Washington. Prescriptions for tramadol given to family by Dr. Warren. Follow up with Dr. Warren in 7 to 10 days. Job ID: [id number]
--- NOTE | 2019-12-01 06:01 | PQF ---
CYNDI DURBIN BRYAN DAVID MD [id number] SURG [id number] CLINICAL DOCUMENTATION CLARIFICATION FORM: POST DISCHARGE Addendum to original discharge summary date: ____ Late entry note date: __ DATE: 12/01/2019 ATTN:ESTUARDO COLEMAN MD Please exercise your independent, professional judgment in responding to the clarification form. Clinical indicators are provided on the bottom of this form for your review Please check appropriate box(s): Kindly Clarify the below diagnosis was significant or Not [ ] UTI and Diverticulitis was significant diagnosis [ ] UTI and Diverticulitis was not significant diagnosis [ ] Diagnosis Option 2 [ ] Other diagnosis [ ] Unable to determine In addition, please specify: Present on Admission (POA): [ ] Yes [ ] No [ ] Unable to determine For continuity of documentation, please document condition throughout progress notes and discharge summary. Thank You. CLINICAL INDICATORS - SIGNS / SYMPTOMS / LABS Patient was admitted with RT lower Quadrant pain - Documented in H&P on 11/27 by Kelvin Monzon she was examined, determined to have UTI given antibiotics, Cipro and Flagyl - Documented in H&P on 11/27 by Kelvin Monzon The patient had been antibiotics for diagnosis UTI and Diverticulitis - Documented in OP report CT abdomen and Pelvis demonstrate Right lower quadrant tenderness - Documented in H&P on 11/27 by Kevlin Monzon RISK FACTORS Acute appendicitis - Documented in DS on 11/29 by ESTUARDO COLEMAN MD TREATMENTS: Levofloxacin 500mg P.O - Medication report CT abdomen and Pelvis Continue to monitors Vitals and continue oral diet and fluids - Documented in hospital PNs on 11/28 by Be WARREN [employer] Dispatcher [employer] Winform Viewer (This form is maintained as a part of the permanent medical record) 2014 [employer]. All Rights Reserved [email or web address] [not provided] MTDD
[2019-12-02] MEDS ORDERED: Ibuprofen 600 MG TAB PO PRN (19:02)
--- NOTE | 2019-12-03 11:09 | EKG ---
Test Reason : Blood Pressure : / mmHG Vent. Rate : 077 BPM Atrial Rate : 077 BPM P-R Int : 162 ms QRS Dur : 066 ms QT Int : 368 ms P-R-T Axes : 060 004 016 degrees QTc Int : 416 ms Normal sinus rhythm Septal infarct , age undetermined Abnormal ECG Confirmed by DORENE MARTIN ([id number]), editorial cartoonist CONCEPCION CASTILLO ([id number]) on 12/03/2019 11:09:19 AM Referred By: Confirmed By:DORENE MARTIN
== END 2019-11-29 15:40 | disposition home or self-care (01) | DRG 331 ==
LOC: ERS 13:51 → SDC/OP 16:44 → SURG B 20:06
PROVIDERS: ADMIT Specialist; ATTEND Specialist
PROC: 0DTJ4ZZ Resection of Appendix, Percutaneous Endoscopic Approach (ICD-10-PCS; principal; 2019-11-27)
PROC: 0DBH4ZZ Excision of Cecum, Percutaneous Endoscopic Approach (ICD-10-PCS; 2019-11-27)
DX: K35.32 Acute appendicitis with perforation, localized peritonitis, and gangrene, without abscess (principal); Z91.048 Other nonmedicinal substance allergy status; Z91.040 Latex allergy status; Z79.899 Other long term (current) drug therapy; Z96.653 Presence of artificial knee joint, bilateral; Z90.49 Acquired absence of other specified parts of digestive tract; K21.9 Gastro-esophageal reflux disease without esophagitis
CPT/HCPCS: 36415; 74177; 80048; 80053; 81003; 81015; 83690; 85025; 88307; 93005; 96361; 96374; J1650; J1885; J2001; J2270; J2405; J2543; J2550; J2704; J3010; J3490; Q9967; S0020

== ENCOUNTER 2019-12-02 13:28 | Emergency (ER) | payer BC ==
--- NOTE | 2019-12-02 14:20 | RAD ---
RIGHT ANKLE 3 VIEWS: HISTORY: right ankle pain and swelling FINDINGS: The ankle mortise is maintained. No acute fracture or dislocation is identified. Posterior and planta r calcaneal spurs are present.
--- NOTE | 2019-12-02 14:31 | ULT ---
EXAM: Right lower extremity venous Doppler US HISTORY: Right lower extremity edema and pain, abdominal surgery 5 days ago FINDINGS: Grayscale, color-flow, Doppler evaluation, spectral analysis of the right lower extremity venous stru ctures is performed with 2-D imaging. The right common femoral, superficial femoral, popliteal, posterior tibial, proximal greater saphenous and profunda femoral veins are imaged. There is normal luminal compressibility, flow, and augmentation the visualized deep venous structures of the right lower extremity. IMPRESSION: No evidence of a deep vein thrombosis in the right lower extremity.
== END 2019-12-02 15:31 | disposition home or self-care (01) ==
LOC: ERS 13:28
DX: M76.61 Achilles tendinitis, right leg (principal); K21.9 Gastro-esophageal reflux disease without esophagitis
CPT/HCPCS: 85379

== ENCOUNTER 2020-09-11 08:37 | Outpatient (CLI) | payer BC, OTHER ==
--- NOTE | 2020-09-11 09:23 | MMO ---
Bilateral MAMMO Bilat Screen DDI+FER. CLINICAL HISTORY: Patient is 65 years old and is seen for screening. The patient has no family history of breast cancer. The patient has no personal history of cancer. The patient has a history of left Excisional Biopsy in 1994 - BENIGN. VIEWS: The views performed were: bilateral craniocaudal with tomosynthesis and bilateral mediolateral oblique with tomosynthesis. FILMS COMPARED: The present examination has been compared to prior imaging studies performed at [facility] on 06/04/2012, 10/25/2015, 10/27/2016 and 01/20/2019. This study has been interpreted with the assistance of computer-aided detection. MAMMOGRAM FINDINGS: There are scattered fibroglandular densities. There is a stable oval mass seen in the middle central region of the left breast. There are no suspicious masses, suspicious calcifications, or new areas of architectural distortion. IMPRESSION: THERE IS NO MAMMOGRAPHIC EVIDENCE OF MALIGNANCY. A ROUTINE FOLLOW-UP MAMMOGRAM IN 1 YEAR IS RECOMMENDED. THE RESULTS OF THIS EXAM WERE SENT TO THE PATIENT. ACR BI-RADS Category 2 - Benign finding MAMMOGRAPHY NOTE: 1. A negative mammogram report should not delay a biopsy if a dominant of clinically suspicious mass is present. 2. Approximately 10% to 15% of breast cancers are not detected by mammography. 3. Adenosis and dense breasts may obscure an underlying neoplasm. Reported by: HUANG RAZO MD Electonically Signed: [id number]
== END 2020-09-11 08:38 | disposition home or self-care (01) ==
LOC: BICMAMMO 08:37
PROVIDERS: ATTEND Family Medicine
DX: Z12.31 Encounter for screening mammogram for malignant neoplasm of breast (principal); Z91.89 Other specified personal risk factors, not elsewhere classified
CPT/HCPCS: 77063; 77067

== ENCOUNTER 2023-07-22 15:58 | Outpatient (CLI) | payer BC | END 2023-07-22 15:59 | disposition home or self-care (01) | LOC: RAD 15:58 | PROVIDERS: ATTEND Family Medicine | DX: M25.552 Pain in left hip (principal); M54.50 Low back pain, unspecified; M47.816 Spondylosis without myelopathy or radiculopathy, lumbar region | CPT/HCPCS: 72100 ==

== ENCOUNTER 2023-07-29 11:38 | Emergency (ER) | payer BC ==
[2023-07-29] MEDS ORDERED: Iopamidol-370 76% 500 ML MDV (1 ML CHARGE) ONE (11:47)
[2023-07-29 12:51] LABS: #Basophils 0.1 thou/uL (0.0-0.2); #Eosinphils 0.1 thou/uL (0.0-0.7); #Monocytes 0.9 thou/uL (0.11-0.59); #Neutrophils 5.6 thou/uL (1.40-6.50); %Basophils 0.7 % (0.0-1.0); %Eosinophils 1.2 % (0.0-10.0); %Monocytes 10.3 % (0.0-10.0); %Neutrophils 65.4 % (42.0-75.0); Hematocrit 38.3 % (36.0-47.0); Hemoglobin 12.7 g/dL (12.0-16.0); Mean Corpuscular HGB CONC 33.2 g/dL (32.0-36.0); Mean Corpuscular Hemoglobin 32.1 pg (27.0-31.0); Mean Corpuscular Volume 96.7 fl (78.0-98.0); Mean Platelet Volume 10.5 fL (7.4-10.4); Platelet Count 295 10x3/uL (130-400); RBC Distribution Width 11.5 % (11.5-14.5); Red Blood Cell (RBC) Count 3.96 mill/uL (4.20-5.40); White Blood Cell (WBC) Count 8.5 10x3/uL (4.8-10.8)
[2023-07-29 13:15] LABS: ALT (SGPT) 59 U/L (8-55); AST (SGOT) 32 U/L (5-34); Alkaline Phosphatase 175 U/L (40-110); Anion Gap 13 mmol/L (10-20); BUN (Urea Nitrogen) 13 mg/dL (9.8-20.1); Bilirubin, Total 0.4 mg/dL (0.2-1.2); Calc. Creatinine Clearance 0 mL/min (70-130); Calcium 9.7 mg/dL (7.8-10.44); Carbon Dioxide 27 mmol/L (23-31); Chloride 100 mmol/L (98-107); Estimated GFR 92; Glucose 116 mg/dL (80-115); Lipase 19 U/L (8-78); Potassium 4.4 mmol/L (3.5-5.1); Sodium 136 mmol/L (136-145)
[2023-07-29 13:46] LABS: PTT 32.1 sec (22.9-36.1)
[2023-07-29 13:47] LABS: INR-International Normal Ratio 1.1; Prothrombin Time 14.2 sec (12.0-14.7)
[2023-07-29 13:48] LABS: D-Dimer Test 2.02 *mcg/mL (0.27-0.43)
[2023-07-29 13:53] LABS: Bilirubin Negative (Negative); Blood, Urine Negative (Negative); CAUTI Indications for Culture Dysuria,urgency,freq; Clarity Clear (Clear); Glucose, Urine (Dipstick) Normal (Negative); Ketone, Urine Negative (Negative); Leukocyte 250 Leu/uL (Negative); Nitrite Negative (Negative); Protein, Urine (Dipstick) 30 mg/dL (Neg-Trace); RBC/HPF 0-3 HPF (0-3); Specific Gravity, Urine 1.022 (1.002-1.036); Urobilinogen Normal mg/dL (Less than 2); pH, Urine 5.5 (5.0-9.0)
[2023-07-29 14:28] LABS: Bacteria/HPF None Seen HPF (None Seen)
[2023-07-29 14:29] LABS: Urine Culture Reflex No No
== END 2023-07-29 18:29 | disposition home or self-care (01) ==
LOC: ERS 11:38
DX: M51.36 Other intervertebral disc degeneration, lumbar region (principal); M54.16 Radiculopathy, lumbar region
CPT/HCPCS: 36415; 72148; 74177; 80053; 81001; 82550; 83690; 85025; 85379; 85610; 85730; 86140; Q9967

== ENCOUNTER 2023-10-27 13:36 | Outpatient (CLI) | payer BC | END 2023-10-27 13:37 | disposition home or self-care (01) | LOC: BICMAMMO 13:36 | PROVIDERS: ATTEND Family Medicine | DX: Z12.31 Encounter for screening mammogram for malignant neoplasm of breast (principal); Z91.89 Other specified personal risk factors, not elsewhere classified | CPT/HCPCS: 77063; 77067 ==

== ENCOUNTER 2024-11-04 08:45 | Outpatient (CLI) | payer BC | END 2024-11-04 08:46 | disposition home or self-care (01) | LOC: BICMAMMO 08:45 | PROVIDERS: ATTEND Family Medicine | DX: Z12.31 Encounter for screening mammogram for malignant neoplasm of breast (principal); Z91.89 Other specified personal risk factors, not elsewhere classified | CPT/HCPCS: 77063; 77067 ==